=== PATIENT | male | born 1955 | race African-American/Black ===

== ENCOUNTER 2016-11-20 17:20 | Inpatient (IN) | payer MEDICARE, OTHER ==
[~2016-11-20] VITALS: Ht 177.8 cm; Wt 78.0 kg
[~2016-11-20 17:20] MED LIST: AMLO10TA80 PO; ATEN-42 PO; CHOL400T15 MT; HYDR-4133 PO; LISI40TA4 PO; METF500T4 PO
[2016-11-20] MEDS ORDERED: ONDANSETRON HCL 4MG/2ML VIAL IV PRN (18:15)
[2016-11-20] MEDS ORDERED: CLONIDINE 0.1MG TABLET PO PRN (18:15)
[2016-11-20] MEDS ORDERED: DEXTROSE 50% WATER 50ML SYRINGE IV PRN (18:15)
[2016-11-20] MEDS ORDERED: DIPHENHYDRAMINE 50MG/ML VIAL IV PRN (18:15)
[2016-11-20] MEDS ORDERED: MECLIZINE 25MG TABLET PO PRN (18:15)
[2016-11-20 18:36] VITALS: BP 137/94
[2016-11-20 20:00] VITALS: BP 152/99
[2016-11-20] MEDS: MAGNESIUM HYDROXIDE 400MG/5ML 30ML UDC PO PRN (20:26)
[2016-11-20] MEDS: LISINOPRIL 20MG TABLET PO SCH (20:26)
[2016-11-20] MEDS: ATORVASTATIN CALCIUM 40MG TABLET PO SCH (20:26)
[2016-11-20] MEDS: INSULIN LISPRO 100 UNITS/ML SUBCUT SCH (21:05)
[2016-11-20] MEDS: BLOOD SUGAR DIAGNOSTIC STRIP TEST SCH (21:05)
[2016-11-21] MEDS: BLOOD SUGAR DIAGNOSTIC STRIP TEST SCH ×4 (06:33→21:00)
[2016-11-21] MEDS: INSULIN LISPRO 100 UNITS/ML SUBCUT SCH ×5 (06:54→22:17)
[2016-11-21 07:58] VITALS: BP 139/96
[2016-11-21] MEDS: AMLODIPINE 10MG TABLET PO SCH (07:58)
[2016-11-21] MEDS: ASPIRIN 81MG EC TABLET PO SCH (07:59)
[2016-11-21] MEDS: ENOXAPARIN 40MG/0.4ML SYR SUBCUT SCH (07:59)
[2016-11-21] MEDS: LISINOPRIL 20MG TABLET PO SCH ×2 (07:59→22:14)
[2016-11-21] MEDS ORDERED: NA PHOS,M-B/NA PHOS,DI-BA ENEMA 118ML PR PRN (13:45)
[2016-11-21] MEDS: DOCUSATE SODIUM 100MG CAPSULE PO SCH ×2 (13:45→16:16)
[2016-11-21 19:00] VITALS: BP_SYST 147; BP_SYST 195; BP_DIAS 122; BP_DIAS 95
[2016-11-21] MEDS: ATORVASTATIN CALCIUM 40MG TABLET PO SCH (22:14)
[2016-11-22 03:45] VITALS: BP 136/70
[2016-11-22] MEDS: BLOOD SUGAR DIAGNOSTIC STRIP TEST SCH ×4 (06:30→20:37)
[2016-11-22 08:00] VITALS: BP 155/105
[2016-11-22] MEDS: AMLODIPINE 10MG TABLET PO SCH (08:43)
[2016-11-22] MEDS: DOCUSATE SODIUM 100MG CAPSULE PO SCH ×2 (08:44→16:21)
[2016-11-22] MEDS: LISINOPRIL 20MG TABLET PO SCH ×2 (08:44→20:37)
[2016-11-22] MEDS: ASPIRIN 81MG EC TABLET PO SCH (08:44)
[2016-11-22] MEDS: ENOXAPARIN 40MG/0.4ML SYR SUBCUT SCH (08:47)
[2016-11-22] MEDS: INSULIN LISPRO 100 UNITS/ML SUBCUT SCH ×5 (08:49→20:36)
[2016-11-22 11:27] VITALS: BP 182/111
[2016-11-22] MEDS ORDERED: CLONIDINE 0.1MG TABLET PO NR (12:45)
[2016-11-22] MEDS: ACETAMINOPHEN 325MG TABLET PO PRN (13:10)
[2016-11-22 14:18] VITALS: BP 168/115
[2016-11-22 15:19] VITALS: BP 178/115
[2016-11-22] MEDS: HYDRALAZINE HCL 100MG TABLET PO SCH ×2 (15:21→20:37)
[2016-11-22] MEDS ORDERED: CLONIDINE 0.2MG TABLET PO PRN (16:00)
[2016-11-22 20:00] VITALS: BP 108/74
[2016-11-22] MEDS: ATORVASTATIN CALCIUM 40MG TABLET PO SCH (20:35)
[2016-11-23] MEDS: BLOOD SUGAR DIAGNOSTIC STRIP TEST SCH ×4 (06:20→21:56)
[2016-11-23] MEDS: INSULIN LISPRO 100 UNITS/ML SUBCUT SCH ×5 (07:00→22:33)
[2016-11-23 08:00] VITALS: BP 152/105
[2016-11-23] MEDS: DOCUSATE SODIUM 100MG CAPSULE PO SCH ×2 (08:48→17:48)
[2016-11-23] MEDS: AMLODIPINE 10MG TABLET PO SCH (08:49)
[2016-11-23] MEDS: HYDRALAZINE HCL 100MG TABLET PO SCH (08:49)
[2016-11-23] MEDS: LISINOPRIL 20MG TABLET PO SCH ×2 (08:49→21:56)
[2016-11-23] MEDS: ASPIRIN 81MG EC TABLET PO SCH (08:49)
[2016-11-23] MEDS: ENOXAPARIN 40MG/0.4ML SYR SUBCUT SCH (08:50)
[2016-11-23 17:45] VITALS: BP 179/118
[2016-11-23 17:46] VITALS: BP 167/126
[2016-11-23 17:47] VITALS: BP 163/113
[2016-11-23 19:00] VITALS: BP 152/96
[2016-11-23] MEDS: ATORVASTATIN CALCIUM 40MG TABLET PO SCH (21:55)
[2016-11-24] MEDS: HYDRALAZINE HCL 100MG TABLET PO SCH ×3 (00:45→16:53)
[2016-11-24] MEDS: INSULIN LISPRO 100 UNITS/ML SUBCUT SCH ×5 (06:24→21:00)
[2016-11-24] MEDS: BLOOD SUGAR DIAGNOSTIC STRIP TEST SCH ×4 (06:24→21:19)
[2016-11-24 06:49] LABS: HEMATOCRIT 41.5 % (42.0-52.0); HEMOGLOBIN 13.9 g/dL (14.0-18.0); MEAN CORPUSCULAR HEMOGLOBIN 27.5 pg (28.0-32.0); MEAN CORPUSCULAR HGB CONC 33.5 g/dL (31.0-37.0); MEAN CORPUSCULAR VOLUME 82.2 fL (80.0-94.0); PLATELET 287 x1000/uL (130-400); RED BLOOD CELL COUNT 5.05 mill/uL (4.7-6.1); RED CELL DISTRIBUTION WIDTH 13.4 % (11.6-14.6); WHITE BLOOD COUNT 7.7 x1000/uL (4.5-11.0)
[2016-11-24 08:00] VITALS: BP 137/95
[2016-11-24] MEDS: DOCUSATE SODIUM 100MG CAPSULE PO SCH ×2 (08:13→16:53)
[2016-11-24] MEDS: HYDROCHLOROTHIAZIDE 25MG TABLET PO SCH (08:13)
[2016-11-24] MEDS: POTASSIUM CHLORIDE 20MEQ TABLET SR PO SCH (08:14)
[2016-11-24] MEDS: ASPIRIN 81MG EC TABLET PO SCH (08:15)
[2016-11-24] MEDS: ENOXAPARIN 40MG/0.4ML SYR SUBCUT SCH (08:15)
[2016-11-24] MEDS: LISINOPRIL 20MG TABLET PO SCH ×2 (08:15→21:21)
[2016-11-24] MEDS: AMLODIPINE 10MG TABLET PO SCH (08:15)
[2016-11-24] MEDS: MAGNESIUM/ALUMINUM HYDROXIDE/SIMETHICONE 30ML UDC PO PRN (18:12)
[2016-11-24 20:00] VITALS: BP 140/96
[2016-11-24] MEDS: ATORVASTATIN CALCIUM 40MG TABLET PO SCH (21:21)
[2016-11-25] MEDS: HYDRALAZINE HCL 100MG TABLET PO SCH ×3 (01:08→17:46)
[2016-11-25] MEDS: BLOOD SUGAR DIAGNOSTIC STRIP TEST SCH ×4 (06:00→20:31)
[2016-11-25] MEDS: INSULIN LISPRO 100 UNITS/ML SUBCUT SCH ×5 (06:01→20:32)
[2016-11-25 06:02] VITALS: BP 123/73
[2016-11-25] MEDS: ONDANSETRON 4MG ODT PO PRN (08:36)
[2016-11-25] MEDS: AMLODIPINE 10MG TABLET PO SCH (08:36)
[2016-11-25] MEDS: LISINOPRIL 20MG TABLET PO SCH ×2 (08:36→20:29)
[2016-11-25] MEDS: DOCUSATE SODIUM 100MG CAPSULE PO SCH ×2 (08:37→17:46)
[2016-11-25] MEDS: ASPIRIN 81MG EC TABLET PO SCH (08:37)
[2016-11-25] MEDS: HYDROCHLOROTHIAZIDE 25MG TABLET PO SCH (08:37)
[2016-11-25] MEDS: POTASSIUM CHLORIDE 20MEQ TABLET SR PO SCH (08:37)
[2016-11-25] MEDS: ENOXAPARIN 40MG/0.4ML SYR SUBCUT SCH (08:38)
[2016-11-25] MEDS: MAGNESIUM/ALUMINUM HYDROXIDE/SIMETHICONE 30ML UDC PO PRN (11:46)
[2016-11-25] MEDS ORDERED: OMEPRAZOLE 20MG CAPSULE EXTENDED RELEASE PO NR (12:15)
[2016-11-25] MEDS: MAGNESIUM HYDROXIDE 400MG/5ML 30ML UDC PO PRN (17:46)
[2016-11-25 20:00] VITALS: BP 131/89
[2016-11-25] MEDS: ATORVASTATIN CALCIUM 40MG TABLET PO SCH (20:29)
[2016-11-26] MEDS: HYDRALAZINE HCL 100MG TABLET PO SCH ×3 (01:00→16:56)
[2016-11-26 06:00] VITALS: BP 136/84
[2016-11-26] MEDS: BLOOD SUGAR DIAGNOSTIC STRIP TEST SCH ×4 (06:09→21:32)
[2016-11-26] MEDS: INSULIN LISPRO 100 UNITS/ML SUBCUT SCH ×5 (06:10→21:00)
[2016-11-26] MEDS: OMEPRAZOLE 20MG CAPSULE EXTENDED RELEASE PO SCH (06:10)
[2016-11-26 07:53] VITALS: BP 139/92
[2016-11-26] MEDS: ASPIRIN 81MG EC TABLET PO SCH (08:40)
[2016-11-26] MEDS: DOCUSATE SODIUM 100MG CAPSULE PO SCH ×2 (08:40→16:56)
[2016-11-26] MEDS: POTASSIUM CHLORIDE 20MEQ TABLET SR PO SCH (08:40)
[2016-11-26] MEDS: LISINOPRIL 20MG TABLET PO SCH ×2 (08:40→21:32)
[2016-11-26] MEDS: AMLODIPINE 10MG TABLET PO SCH (08:41)
[2016-11-26] MEDS: ENOXAPARIN 40MG/0.4ML SYR SUBCUT SCH (08:41)
[2016-11-26] MEDS: HYDROCHLOROTHIAZIDE 25MG TABLET PO SCH (08:41)
[2016-11-26] MEDS: BISACODYL 10MG SUPP PR PRN (17:54)
[2016-11-26] MEDS ORDERED: LACTULOSE 20G/30ML UDC PO NR (18:00)
[2016-11-26 20:00] VITALS: BP 133/86
[2016-11-26] MEDS: ATORVASTATIN CALCIUM 40MG TABLET PO SCH (21:32)
[2016-11-27] MEDS: ACETAMINOPHEN 325MG TABLET PO PRN ×3 (00:50→19:23)
[2016-11-27] MEDS: HYDRALAZINE HCL 100MG TABLET PO SCH ×3 (00:50→17:02)
[2016-11-27 01:00] VITALS: BP 148/83
[2016-11-27] MEDS: BLOOD SUGAR DIAGNOSTIC STRIP TEST SCH ×4 (06:03→20:39)
[2016-11-27] MEDS: OMEPRAZOLE 20MG CAPSULE EXTENDED RELEASE PO SCH (06:04)
[2016-11-27] MEDS: INSULIN LISPRO 100 UNITS/ML SUBCUT SCH ×5 (06:28→20:41)
[2016-11-27 07:45] VITALS: BP 142/91
[2016-11-27] MEDS: ENOXAPARIN 40MG/0.4ML SYR SUBCUT SCH (09:13)
[2016-11-27] MEDS: POLYETHYLENE GLYCOL 3350 (17GM) 1 DOSE PACK PO SCH (09:13)
[2016-11-27] MEDS: DOCUSATE SODIUM 100MG CAPSULE PO SCH ×2 (09:13→17:01)
[2016-11-27] MEDS: POTASSIUM CHLORIDE 20MEQ TABLET SR PO SCH (09:14)
[2016-11-27] MEDS: LISINOPRIL 20MG TABLET PO SCH ×2 (09:14→20:39)
[2016-11-27] MEDS: HYDROCHLOROTHIAZIDE 25MG TABLET PO SCH (09:14)
[2016-11-27] MEDS: ASPIRIN 81MG EC TABLET PO SCH (09:14)
[2016-11-27] MEDS: AMLODIPINE 10MG TABLET PO SCH (09:14)
[2016-11-27 20:00] VITALS: BP 128/89
[2016-11-27] MEDS: LACTULOSE 20G/30ML UDC PO SCH (20:38)
[2016-11-27] MEDS: ATORVASTATIN CALCIUM 40MG TABLET PO SCH (20:38)
[2016-11-28] MEDS: HYDRALAZINE HCL 100MG TABLET PO SCH ×3 (00:22→16:55)
[2016-11-28] MEDS: ACETAMINOPHEN 325MG TABLET PO PRN ×2 (01:01→18:20)
[2016-11-28] MEDS: OMEPRAZOLE 20MG CAPSULE EXTENDED RELEASE PO SCH (06:19)
[2016-11-28] MEDS: BLOOD SUGAR DIAGNOSTIC STRIP TEST SCH ×4 (06:19→21:04)
[2016-11-28] MEDS: INSULIN LISPRO 100 UNITS/ML SUBCUT SCH ×5 (07:19→21:33)
[2016-11-28 08:00] VITALS: BP 132/84
[2016-11-28] MEDS: POLYETHYLENE GLYCOL 3350 (17GM) 1 DOSE PACK PO SCH (09:23)
[2016-11-28] MEDS: ENOXAPARIN 40MG/0.4ML SYR SUBCUT SCH (09:23)
[2016-11-28] MEDS: POTASSIUM CHLORIDE 20MEQ TABLET SR PO SCH (09:24)
[2016-11-28] MEDS: DOCUSATE SODIUM 100MG CAPSULE PO SCH ×2 (09:24→16:55)
[2016-11-28] MEDS: ASPIRIN 81MG EC TABLET PO SCH (09:24)
[2016-11-28] MEDS: HYDROCHLOROTHIAZIDE 25MG TABLET PO SCH (09:25)
[2016-11-28] MEDS: LISINOPRIL 20MG TABLET PO SCH ×2 (09:25→21:28)
[2016-11-28] MEDS: AMLODIPINE 10MG TABLET PO SCH (09:25)
[2016-11-28] MEDS: ONDANSETRON 4MG ODT PO PRN (11:08)
[2016-11-28 20:00] VITALS: BP 132/84
[2016-11-28] MEDS: GABAPENTIN 400MG CAPSULE PO SCH (21:27)
[2016-11-28] MEDS: ATORVASTATIN CALCIUM 40MG TABLET PO SCH (21:27)
[2016-11-28] MEDS: LACTULOSE 20G/30ML UDC PO SCH (21:28)
[2016-11-29] MEDS: HYDRALAZINE HCL 100MG TABLET PO SCH ×3 (01:41→17:30)
[2016-11-29] MEDS: ACETAMINOPHEN 325MG TABLET PO PRN ×2 (01:47→20:46)
[2016-11-29] MEDS: BLOOD SUGAR DIAGNOSTIC STRIP TEST SCH ×4 (06:29→20:49)
[2016-11-29 08:00] VITALS: BP 129/97
[2016-11-29] MEDS: INSULIN LISPRO 100 UNITS/ML SUBCUT SCH ×5 (08:16→20:49)
[2016-11-29] MEDS: POLYETHYLENE GLYCOL 3350 (17GM) 1 DOSE PACK PO SCH (10:19)
[2016-11-29] MEDS: DOCUSATE SODIUM 100MG CAPSULE PO SCH ×2 (10:20→17:30)
[2016-11-29] MEDS: POTASSIUM CHLORIDE 20MEQ TABLET SR PO SCH (10:21)
[2016-11-29] MEDS: AMLODIPINE 10MG TABLET PO SCH (10:21)
[2016-11-29] MEDS: LOSARTAN POTASSIUM 50 MG TABLET PO SCH (10:21)
[2016-11-29] MEDS: FAMOTIDINE 20MG TABLET PO SCH ×2 (10:22→20:46)
[2016-11-29] MEDS: LISINOPRIL 20MG TABLET PO SCH ×2 (10:22→20:47)
[2016-11-29] MEDS: ASPIRIN 81MG EC TABLET PO SCH (10:22)
[2016-11-29] MEDS: GABAPENTIN 400MG CAPSULE PO SCH ×2 (10:22→17:30)
[2016-11-29] MEDS: HYDROCHLOROTHIAZIDE 25MG TABLET PO SCH (10:22)
[2016-11-29] MEDS: ENOXAPARIN 40MG/0.4ML SYR SUBCUT SCH (10:25)
[2016-11-29] MEDS: MAGNESIUM HYDROXIDE 400MG/5ML 30ML UDC PO PRN (18:44)
[2016-11-29 20:00] VITALS: BP 139/91
[2016-11-29] MEDS: ATORVASTATIN CALCIUM 40MG TABLET PO SCH (20:47)
[2016-11-29] MEDS: LACTULOSE 20G/30ML UDC PO SCH (20:47)
[2016-11-30] MEDS: HYDRALAZINE HCL 100MG TABLET PO SCH ×3 (01:50→16:32)
[2016-11-30 01:54] VITALS: BP 126/80
[2016-11-30] MEDS: INSULIN LISPRO 100 UNITS/ML SUBCUT SCH ×5 (06:27→21:09)
[2016-11-30] MEDS: BLOOD SUGAR DIAGNOSTIC STRIP TEST SCH ×4 (06:27→21:03)
[2016-11-30 08:00] VITALS: BP 144/96
[2016-11-30] MEDS: POLYETHYLENE GLYCOL 3350 (17GM) 1 DOSE PACK PO SCH (08:39)
[2016-11-30] MEDS: DOCUSATE SODIUM 100MG CAPSULE PO SCH ×2 (08:39→16:33)
[2016-11-30] MEDS: POTASSIUM CHLORIDE 20MEQ TABLET SR PO SCH (08:40)
[2016-11-30] MEDS: ASPIRIN 81MG EC TABLET PO SCH (08:40)
[2016-11-30] MEDS: LISINOPRIL 20MG TABLET PO SCH ×2 (08:41→21:03)
[2016-11-30] MEDS: GABAPENTIN 400MG CAPSULE PO SCH ×2 (08:41→16:33)
[2016-11-30] MEDS: AMLODIPINE 10MG TABLET PO SCH (08:41)
[2016-11-30] MEDS: LOSARTAN POTASSIUM 50 MG TABLET PO SCH (08:41)
[2016-11-30] MEDS: HYDROCHLOROTHIAZIDE 25MG TABLET PO SCH (08:41)
[2016-11-30] MEDS: ENOXAPARIN 40MG/0.4ML SYR SUBCUT SCH (08:41)
[2016-11-30] MEDS: FAMOTIDINE 20MG TABLET PO SCH ×2 (08:42→21:03)
[2016-11-30 20:17] VITALS: BP 145/96
[2016-11-30] MEDS: ATORVASTATIN CALCIUM 40MG TABLET PO SCH (21:03)
[2016-11-30] MEDS: LACTULOSE 20G/30ML UDC PO SCH (21:03)
[2016-12-01] MEDS: HYDRALAZINE HCL 100MG TABLET PO SCH ×3 (01:54→17:18)
[2016-12-01] MEDS: ACETAMINOPHEN 325MG TABLET PO PRN ×2 (06:19→18:50)
[2016-12-01] MEDS: BLOOD SUGAR DIAGNOSTIC STRIP TEST SCH ×4 (06:20→21:36)
[2016-12-01] MEDS: INSULIN LISPRO 100 UNITS/ML SUBCUT SCH ×5 (06:20→21:36)
[2016-12-01 07:53] VITALS: BP 134/96
[2016-12-01] MEDS: DOCUSATE SODIUM 100MG CAPSULE PO SCH ×2 (09:16→17:18)
[2016-12-01] MEDS: FAMOTIDINE 20MG TABLET PO SCH ×2 (09:17→20:28)
[2016-12-01] MEDS: HYDROCHLOROTHIAZIDE 25MG TABLET PO SCH (09:17)
[2016-12-01] MEDS: GABAPENTIN 400MG CAPSULE PO SCH ×2 (09:17→17:17)
[2016-12-01] MEDS: AMLODIPINE 10MG TABLET PO SCH (09:17)
[2016-12-01] MEDS: POTASSIUM CHLORIDE 20MEQ TABLET SR PO SCH (09:17)
[2016-12-01] MEDS: LOSARTAN POTASSIUM 50 MG TABLET PO SCH (09:18)
[2016-12-01] MEDS: LISINOPRIL 20MG TABLET PO SCH ×2 (09:18→20:28)
[2016-12-01] MEDS: ASPIRIN 81MG EC TABLET PO SCH (09:18)
[2016-12-01] MEDS: ENOXAPARIN 40MG/0.4ML SYR SUBCUT SCH (09:19)
[2016-12-01] MEDS: POLYETHYLENE GLYCOL 3350 (17GM) 1 DOSE PACK PO SCH (09:19)
[2016-12-01] MEDS: ONDANSETRON 4MG ODT PO PRN (12:04)
[2016-12-01 20:00] VITALS: BP 118/87
[2016-12-01] MEDS: ATORVASTATIN CALCIUM 40MG TABLET PO SCH (20:27)
[2016-12-01] MEDS: LACTULOSE 20G/30ML UDC PO SCH (20:27)
[2016-12-01] MEDS: BISACODYL 10MG SUPP PR PRN (20:32)
[2016-12-01] MEDS ORDERED: LACTULOSE 20G/30ML UDC PO PRN (21:00)
[2016-12-02] MEDS: HYDRALAZINE HCL 100MG TABLET PO SCH ×3 (00:41→17:16)
[2016-12-02] MEDS: BLOOD SUGAR DIAGNOSTIC STRIP TEST SCH ×4 (06:25→20:48)
[2016-12-02 06:41] LABS: BASOPHILS % 0.8 % (0.0-2.0); EOSINOPHILS % 1.8 % (0.0-5.0); HEMOGLOBIN. 12.9 g/dL (14.0-18.0); MEAN CORPUSCULAR HEMOGLOBIN 27.5 pg (28.0-32.0); MEAN CORPUSCULAR HGB CONC 33.2 g/dL (31.0-37.0); MEAN CORPUSCULAR VOLUME 82.7 fL (80.0-94.0); MEAN PLATELET VOLUME 7.1 fl (7.4-10.4); NEUTROPHILS % 57.4 % (40.0-76.0); PLATELET 318 x1000/uL (130-400); RED BLOOD CELL COUNT 4.71 mill/uL (4.7-6.1); RED CELL DISTRIBUTION WIDTH 13.5 % (11.6-14.6); WHITE BLOOD COUNT 6.4 x1000/uL (4.5-11.0)
[2016-12-02] MEDS: INSULIN LISPRO 100 UNITS/ML SUBCUT SCH ×5 (07:13→21:00)
[2016-12-02 07:37] LABS: ANION GAP 11; CALCIUM 8.7 mg/dL (8.5-10.1); CARBON DIOXIDE 31 mEq/L (21-32); CHLORIDE 99 mEq/L (98-107); INDEX HEMOLYSI 1 (1-3); INDEX ICTERIC 1 (1-4); INDEX LIPEMIC 1 (1-3); PHOSPHORUS 3.7 mg/dL (2.5-4.9); UREA NITROGEN BLOOD 15 mg/dL (7-21); eGFR > 60 mL/min (>60)
[2016-12-02 08:00] VITALS: BP 151/100
[2016-12-02] MEDS ORDERED: POTASSIUM CHLORIDE 20MEQ TABLET SR PO NR (08:00)
[2016-12-02] MEDS: POLYETHYLENE GLYCOL 3350 (17GM) 1 DOSE PACK PO SCH (09:17)
[2016-12-02] MEDS: LISINOPRIL 20MG TABLET PO SCH ×2 (09:17→20:49)
[2016-12-02] MEDS: ENOXAPARIN 40MG/0.4ML SYR SUBCUT SCH (09:17)
[2016-12-02] MEDS: GABAPENTIN 400MG CAPSULE PO SCH ×2 (09:18→17:17)
[2016-12-02] MEDS: ASPIRIN 81MG EC TABLET PO SCH (09:18)
[2016-12-02] MEDS: METFORMIN HCL 500MG TABLET PO SCH ×2 (09:18→17:00)
[2016-12-02] MEDS: AMLODIPINE 10MG TABLET PO SCH (09:18)
[2016-12-02] MEDS: POTASSIUM CHLORIDE 20MEQ TABLET SR PO SCH (09:18)
[2016-12-02] MEDS: DOCUSATE SODIUM 100MG CAPSULE PO SCH ×2 (09:18→17:17)
[2016-12-02] MEDS: HYDROCHLOROTHIAZIDE 25MG TABLET PO SCH (09:18)
[2016-12-02] MEDS: LOSARTAN POTASSIUM 50 MG TABLET PO SCH (09:19)
[2016-12-02] MEDS: FAMOTIDINE 20MG TABLET PO SCH ×2 (09:19→20:49)
[2016-12-02] MEDS: ACETAMINOPHEN 325MG TABLET PO PRN ×2 (13:01→20:49)
[2016-12-02 20:00] VITALS: BP 135/93
[2016-12-02] MEDS: LACTULOSE 20G/30ML UDC PO SCH (20:48)
[2016-12-02] MEDS: ATORVASTATIN CALCIUM 40MG TABLET PO SCH (20:48)
[2016-12-03] MEDS: HYDRALAZINE HCL 100MG TABLET PO SCH ×2 (01:03→09:34)
[2016-12-03] MEDS: INSULIN LISPRO 100 UNITS/ML SUBCUT SCH ×3 (05:55→12:48)
[2016-12-03] MEDS: BLOOD SUGAR DIAGNOSTIC STRIP TEST SCH ×2 (05:55→11:29)
[2016-12-03 08:00] VITALS: BP 137/67
[2016-12-03] MEDS: POLYETHYLENE GLYCOL 3350 (17GM) 1 DOSE PACK PO SCH (09:27)
[2016-12-03] MEDS: AMLODIPINE 10MG TABLET PO SCH (09:30)
[2016-12-03] MEDS: ENOXAPARIN 40MG/0.4ML SYR SUBCUT SCH (09:31)
[2016-12-03] MEDS: LOSARTAN POTASSIUM 50 MG TABLET PO SCH (09:33)
[2016-12-03] MEDS: LISINOPRIL 20MG TABLET PO SCH (09:33)
[2016-12-03] MEDS: ASPIRIN 81MG EC TABLET PO SCH (09:33)
[2016-12-03] MEDS: FAMOTIDINE 20MG TABLET PO SCH (09:33)
[2016-12-03] MEDS: POTASSIUM CHLORIDE 20MEQ TABLET SR PO SCH (09:33)
[2016-12-03] MEDS: HYDROCHLOROTHIAZIDE 25MG TABLET PO SCH (09:34)
[2016-12-03] MEDS: GABAPENTIN 400MG CAPSULE PO SCH (09:34)
[2016-12-03] MEDS: METFORMIN HCL 500MG TABLET PO SCH (09:34)
[2016-12-03] MEDS: DOCUSATE SODIUM 100MG CAPSULE PO SCH (09:35)
[2016-12-03 13:07] VITALS: BP 132/92
== END 2016-12-03 13:57 | disposition home or self-care (01) | DRG 66 ==
PROVIDERS: ADMIT Psychiatry & Neurology Neurology; ATTEND Internal Medicine
DX: I63.9 Cerebral infarction, unspecified (principal); E78.5 Hyperlipidemia, unspecified; F20.9 Schizophrenia, unspecified; F43.10 Post-traumatic stress disorder, unspecified; E78.00 Pure hypercholesterolemia, unspecified; E11.40 Type 2 diabetes mellitus with diabetic neuropathy, unspecified; K21.9 Gastro-esophageal reflux disease without esophagitis; K59.00 Constipation, unspecified; R42 Dizziness and giddiness; R29.810 Facial weakness; H55.00 Unspecified nystagmus; I10 Essential (primary) hypertension; Z82.49 Family history of ischemic heart disease and other diseases of the circulatory system; Z83.3 Family history of diabetes mellitus; Z90.89 Acquired absence of other organs; Z91.018 Allergy to other foods; Z79.899 Other long term (current) drug therapy
CPT/HCPCS: 36415; 80048; 82962; 83735; 84100; 85025; 85027; 92523; 93970; 97110; 97112; 97116; 97162; 97167; 97530; 97532; 97535; J1650; J1815; Q0162